=== PATIENT | female | born 1970 | race Caucasian/White ===

== ENCOUNTER 2016-08-19 10:20 | Inpatient (IN) | payer MEDICAID ==
[~2016-08-19] VITALS: Ht 170.2 cm; Wt 58.3 kg
--- NOTE | ~2016-08-19 | CON ---
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 She twirls her hair to the point of pulling it out. She is very obsessive and she tends to worry excessively. Panic attacks come out of the blue and occur without warning. A panic attack will carry with it the autonomic nervous system symptoms of chest pain, shortness of breath, diaphoresis, trembling and a sense of impending doom. She reports multiple drug trials over time including Effexor, Paxil, Prozac and several others without much benefit. PAST MEDICAL HISTORY: Remarkable for endometriosis, HPV and panic disorder. MENTAL STATUS: She is alert and oriented to person, place and time. Mood does seem to be somewhat anxious and fretful. She endorses symptoms of both OCD and panic disorder. There is no psychosis, no auditory or visual hallucinations, delusions or paranoia. Memory is fairly well intact. DIAGNOSIS: Trichotillomania and panic disorder. PLAN: I will start her on Luvox 50 mg twice daily. May want to utilize some p.r.n. Ativan in the meantime short term to decrease the symptoms of the panic disorder as we await for the Luvox to work and prevent it from happening. She is interested in following up with my office as an outpatient and I would facilitate that as well. There is no need for further inpatient hospitalization for her. PATRICE JOSEPH MD CM:CONSTR:REPORT OF CONSULTATION 1158 08/21/16 0332 interface
[~2016-08-19 10:20] MED LIST: ATIVAN0.5 MG PO; KEFLEX500 MG PO; NKHM; SEPTRA DS 800 M1 TAB PO; TOPICORT PO; TRAMADOL HCL50 MG PO
[2016-08-19 10:35] VITALS: BP 153/108
[2016-08-19 11:00] LABS: BASO % 0.4 % (0.0-1.0); EOS % 0.1 % (1.0-4.0); HEMATOCRIT 45.5 % (37.0-47.0); HEMOGLOBIN 15.4 g/dl (12.0-16.0); LYMPH # 1.4 10*3/uL (1.3-4.4); LYMPH % 14.7 % (27.0-41.0); MEAN CORPUSCULAR HGB 29.1 pg (27.0-31.0); MEAN CORPUSCULAR HGB CONC 33.8 g/dl (33.0-37.0); MEAN PLATELET VOLUME 9.4 fl (9.6-12.3); MONO # 0.7 10*3/uL (0.1-1.0); MONO % 7.6 % (3.0-9.0); NEUT # 7.3 10*3/uL (2.3-7.9); NEUT % 76.9 % (47.0-73.0); PLATELET COUNT AUTOMATED 378 10*3/uL (130-400); RED BLOOD COUNT 5.29 10*6/uL (4.10-5.10); RED CELL DISTRI WIDTH 15.2 % (0-14.5); WHITE BLOOD COUNT 9.6 10*3/uL (4.8-10.8)
[2016-08-19 11:09] LABS: PROTHROMBIN TIME 10.2 SECONDS (9.0-12.4)
[2016-08-19 11:16] LABS: ALBUMIN 4.2 gm/dl (3.1-4.5); ALKALINE PHOSPHATASE 68 U/L (45-117); BILIRUBIN, TOTAL 0.3 mg/dl (0.2-1.0); BUN 7 mg/dl (7-24); CARBON DIOXIDE 23 mmol/L (21-32); CHLORIDE 108 mmol/L (98-107); EST GLOM FILT AFRICAN AMERICAN > 60 ml/min; GLUCOSE 160 mg/dL (65-99); MAGNESIUM 2.4 mg/dL (1.5-2.1); POTASSIUM 3.5 mmol/L (3.5-5.1); SGOT/AST 16 IU/L (3-35); SGPT/ALT 16 U/L (12-78); SODIUM 140 mmol/L (136-145); TOTAL PROTEIN 7.7 gm/dL (6.4-8.2)
[2016-08-19 11:23] LABS: TROPONIN I < 0.015 ng/ml (<0.045)
[2016-08-19 11:49] LABS: URINE AMPHETAMINES < 1000 (1000ng/ml); URINE BARBITURATES < 200 (200ng/ml); URINE COCAINE < 300 (300ng/ml)
[2016-08-19 12:07] VITALS: BP 157/94
[2016-08-19 16:00] VITALS: BP 104/60
[2016-08-19 18:16] LABS: CKMB 0.9 ng/ml (0.5-3.6); CPK 116 U/L (26-192)
[2016-08-19 18:17] LABS: TROPONIN I < 0.015 ng/ml (<0.045)
[2016-08-19 20:00] VITALS: BP 139/90
[2016-08-20] VITALS: BP 127/73
[2016-08-20 00:37] LABS: CKMB 0.9 ng/ml (0.5-3.6)
[2016-08-20 00:39] LABS: CPK 142 U/L (26-192); TROPONIN I < 0.015 ng/ml (<0.045)
[2016-08-20 06:20] LABS: BASO % 0.5 % (0.0-1.0); EOS # 0.2 10*3/uL (0.0-0.4); EOS % 1.8 % (1.0-4.0); HEMATOCRIT 40.5 % (37.0-47.0); HEMOGLOBIN 13.6 g/dl (12.0-16.0); LYMPH # 2.2 10*3/uL (1.3-4.4); LYMPH % 26.7 % (27.0-41.0); MEAN CELL VOLUME 87.1 fl (81.0-99.0); MEAN CORPUSCULAR HGB 29.2 pg (27.0-31.0); MEAN CORPUSCULAR HGB CONC 33.6 g/dl (33.0-37.0); MEAN PLATELET VOLUME 9.6 fl (9.6-12.3); MONO # 0.9 10*3/uL (0.1-1.0); MONO % 10.6 % (3.0-9.0); NEUT # 4.9 10*3/uL (2.3-7.9); NEUT % 59.9 % (47.0-73.0); PLATELET COUNT AUTOMATED 340 10*3/uL (130-400); RED BLOOD COUNT 4.65 10*6/uL (4.10-5.10); RED CELL DISTRI WIDTH 15.7 % (0-14.5); WHITE BLOOD COUNT 8.2 10*3/uL (4.8-10.8)
[2016-08-20 06:35] LABS: CKMB 1.1 ng/ml (0.5-3.6)
[2016-08-20 06:36] LABS: CPK 99 U/L (26-192); TROPONIN I < 0.015 ng/ml (<0.045)
[2016-08-20 06:53] LABS: BUN 15 mg/dl (7-24); CARBON DIOXIDE 26 mmol/L (21-32); CHLORIDE 112 mmol/L (98-107); CHOLESTEROL 120 mg/dL (<200); EST GLOM FILT AFRICAN AMERICAN > 60 ml/min; GLUCOSE 87 mg/dL (65-99); SODIUM 145 mmol/L (136-145); TRIGLYCERIDES 52 mg/dl (<150); VLDL CHOLESTEROL 10 mg/dL (6-40)
[2016-08-20 07:01] LABS: FREE T4 1.07 ng/dl (0.76-1.46); HDL CHOLESTEROL 61 mg/dl (40-60); INTERNATIONAL NORM RATIO 0.9 (2.0-3.5); LDL CHOLESTEROL 49 mg/dL (9-159); PROTHROMBIN TIME 9.9 SECONDS (9.0-12.4)
[2016-08-20 08:00] VITALS: BP 144/90
[2016-08-20 12:00] VITALS: BP 168/88
[2016-08-20 16:00] VITALS: BP 151/82; BP 97/42
[2016-08-20 20:00] VITALS: BP 136/84
[2016-08-21] VITALS: BP 141/90
[2016-08-21 08:00] VITALS: BP 148/91
[2016-08-21] MEDS ORDERED: FLUVOXAMINE50 MG PO (09:56)
== END 2016-08-21 11:25 | disposition home or self-care (01) | DRG 305 ==
LOC: ED 10:20 → EDHOLD 12:07 → 5E 12:26
PROVIDERS: Internal Medicine
DX: I16.0 Hypertensive urgency (principal); E83.41 Hypermagnesemia; R00.1 Bradycardia, unspecified; I16.1 Hypertensive emergency; F23 Brief psychotic disorder; F41.0 Panic disorder [episodic paroxysmal anxiety]; F17.200 Nicotine dependence, unspecified, uncomplicated; F63.3 Trichotillomania; Z88.6 Allergy status to analgesic agent; Z71.6 Tobacco abuse counseling; F12.10 Cannabis abuse, uncomplicated

== ENCOUNTER → 2023-01-26 | Outpatient (CLI) | payer OTHER ==
[~2023-01-26] MED LIST changes: +FLUVOXAMINE50 MG PO
== END | disposition home or self-care (01) ==
LOC: MAMMO 01:24
PROVIDERS: ATTEND Internal Medicine Nephrology
DX: Z12.31 Encounter for screening mammogram for malignant neoplasm of breast (principal)

== ENCOUNTER 2024-04-16 07:02 | Emergency (ER) | payer OTHER ==
[~2024-04-16] VITALS: Ht 162.5 cm; Wt 98.4 kg
[2024-04-16 07:29] LABS: BILIRUBIN Negative (Negative); BLOOD Trace-Intact (Negative); CLARITY Cloudy (Clear); COLOR Yellow (Yellow); GLUCOSE Negative (Negative); KETONE Negative (Negative); LEUKO ESTERASE Negative (Negative); NITRITE Negative (Negative); PH 5.5 (4.5-8.0); UROBILINOGEN 0.2 E.U./dl (0.0-1.0)
[2024-04-16] MEDS ORDERED: Ketorolac Tromethamine 15 MG/ML VIAL IV ONE (07:30)
[2024-04-16] MEDS ORDERED: Ondansetron Hydrochloride 4 MG/2 ML VIAL IV ONE (07:30)
[2024-04-16] MEDS ORDERED: SODIUM CHLORIDE 0.9% 1,000 ML IV ONE (07:35)
[2024-04-16] MEDS ORDERED: Albuterol Sulf/Ipratropium 3 ML VIAL NEB ONE (07:35)
[2024-04-16] MEDS ORDERED: MORPHINE Sulfate 2 MG/ML SYR IV ONE (07:35)
[2024-04-16 07:51] LABS: EPITHELIAL CELLS 21-30
[2024-04-16 08:23] LABS: BASO % 0.4 % (0.0-1.0); EOS # 0.2 10*3/uL (0.0-0.4); EOS % 1.9 % (1.0-4.0); HEMATOCRIT 41.5 % (37.0-47.0); MEAN CELL VOLUME 86.1 fl (81.0-99.0); MEAN CORPUSCULAR HGB CONC 32.5 g/dl (33.0-37.0); MONO # 0.5 10*3/uL (0.1-1.0); MONO % 4.9 % (3.0-9.0); NEUT # 6.4 10*3/uL (2.3-7.9); NEUT % 62.9 % (47.0-73.0); PLATELET COUNT AUTOMATED 463 10*3/uL (130-400); RED BLOOD COUNT 4.82 10*6/uL (4.10-5.10); RED CELL DISTRI WIDTH 13.8 % (0-14.5); WHITE BLOOD COUNT 10.1 10*3/uL (4.8-10.8)
[2024-04-16 08:51] LABS: BUN 16 mg/dl (9-23); CHLORIDE 107 mmol/L (98-107); POTASSIUM 3.5 mmol/L (3.4-5.1)
[2024-04-16] MEDS ORDERED: CIPRO500 MG PO (08:57)
[2024-04-16] MEDS ORDERED: MELOXICAM15 MG PO (08:57)
== END 2024-04-16 09:25 | disposition home or self-care (01) ==
LOC: ED 07:02
PROVIDERS: Emergency Medicine
DX: Z88.5 Allergy status to narcotic agent (principal); Z79.899 Other long term (current) drug therapy; F17.200 Nicotine dependence, unspecified, uncomplicated; N39.0 Urinary tract infection, site not specified; R10.9 Unspecified abdominal pain

== ENCOUNTER → 2024-08-23 | Outpatient (CLI) | payer OTHER ==
[~2024-08-23] MED LIST changes: +CIPRO500 MG PO; +MELOXICAM15 MG PO
[2024-08-23 17:38] LABS: ALKALINE PHOSPHATASE 132 U/L (46-116); BUN 10 mg/dl (9-23); CHLORIDE 102 mmol/L (98-107); CHOLESTEROL 200 mg/dL (<200); LDL CHOLESTEROL 95 mg/dL (9-159); POTASSIUM 3.9 mmol/L (3.4-5.1); SGPT/ALT 40 U/L (5-49); TOTAL PROTEIN 6.8 gm/dL (6.0-8.0); TRIGLYCERIDES 257 mg/dl (<150)
[2024-08-23 17:40] LABS: VITAMIN D, 25-HYDROXY 26.5 ng/mL (30-100)
[2024-08-23 17:54] LABS: FREE T4 1.12 ng/dl (0.89-1.76)
== END | disposition home or self-care (01) ==
LOC: LAB 11:36
PROVIDERS: ATTEND Nurse Practitioner Family
DX: I10 Essential (primary) hypertension (principal); R53.83 Other fatigue; Z13.1 Encounter for screening for diabetes mellitus; Z13.29 Encounter for screening for other suspected endocrine disorder; Z13.220 Encounter for screening for lipoid disorders; Z76.89 Persons encountering health services in other specified circumstances

== ENCOUNTER → 2024-11-21 | Outpatient (CLI) | payer OTHER ==
[2024-11-21 12:17] LABS: BASO # 0.1 10*3/uL (0.0-0.1); BASO % 0.5 % (0.0-1.0); EOS # 0.2 10*3/uL (0.0-0.4); EOS % 2.0 % (1.0-4.0); MEAN CELL VOLUME 85.9 fl (81.0-99.0); MEAN CORPUSCULAR HGB 27.5 pg (27.0-31.0); MEAN PLATELET VOLUME 9.5 fl (9.6-12.3); MONO # 0.6 10*3/uL (0.1-1.0); MONO % 5.2 % (3.0-9.0); NEUT # 7.0 10*3/uL (2.3-7.9); NEUT % 65.1 % (47.0-73.0); NUCLEATED RED BLOOD CELL 0.0 % (0.0-0.0); NUCLEATED RED BLOOD CELL 0.0 10*3/uL (0.0-0.0); PLATELET COUNT AUTOMATED 526 10*3/uL (130-400); RED CELL DISTRI WIDTH 13.6 % (0-14.5)
[2024-11-21 13:39] LABS: BUN 12 mg/dl (9-23)
[2024-11-21 13:45] LABS: SGPT/ALT 28 U/L (5-49)
[2024-11-21 14:01] LABS: FREE T4 1.23 ng/dl (0.89-1.76)
[2024-11-22 15:07] LABS: THYROGLOBULIN ANTIBODY 1.3 IU/mL (0.0-0.9)
== END | disposition home or self-care (01) ==
LOC: RHCWE 09:37
PROVIDERS: ATTEND Nurse Practitioner Family
DX: I10 Essential (primary) hypertension (principal); E78.1 Pure hyperglyceridemia; E03.9 Hypothyroidism, unspecified; R73.03 Prediabetes; F20.9 Schizophrenia, unspecified

== ENCOUNTER → 2025-02-26 | Outpatient (CLI) | payer OTHER ==
[2025-02-26 12:19] LABS: BASO # 0.1 10*3/uL (0.0-0.1); BASO % 0.5 % (0.0-1.0); EOS # 0.1 10*3/uL (0.0-0.4); EOS % 0.6 % (1.0-4.0); MEAN CELL VOLUME 86.0 fl (81.0-99.0); MEAN CORPUSCULAR HGB 28.3 pg (27.0-31.0); MEAN PLATELET VOLUME 9.6 fl (9.6-12.3); MONO # 0.7 10*3/uL (0.1-1.0); MONO % 5.6 % (3.0-9.0); NEUT # 8.2 10*3/uL (2.3-7.9); NEUT % 71.2 % (47.0-73.0); NUCLEATED RED BLOOD CELL 0.0 % (0.0-0.0); NUCLEATED RED BLOOD CELL 0.0 10*3/uL (0.0-0.0); PLATELET COUNT AUTOMATED 469 10*3/uL (130-400); RED CELL DISTRI WIDTH 13.8 % (0-14.5)
[2025-02-26 12:34] LABS: BUN 11 mg/dl (9-23); LDL CHOLESTEROL 103 mg/dL (9-159); SGPT/ALT 28 U/L (5-49)
[2025-02-26 13:07] LABS: FREE T4 1.37 ng/dl (0.89-1.76)
== END | disposition home or self-care (01) ==
LOC: RHCWE 09:30
PROVIDERS: ATTEND Nurse Practitioner Family
DX: I10 Essential (primary) hypertension (principal); E03.9 Hypothyroidism, unspecified; E55.9 Vitamin D deficiency, unspecified; F20.9 Schizophrenia, unspecified; E66.01 Morbid (severe) obesity due to excess calories